=== PATIENT | male | born 1935 | race Caucasian/White ===

== ENCOUNTER 2018-01-16 14:19 | Inpatient (IN) | payer BC, MEDICARE ==
[~2018-01-16] VITALS: Ht 157.5 cm; Wt 78.0 kg
[~2018-01-16 14:19] MED LIST: ACYC-57 PO; ALBU90AE INH; ASPI-496 PO; ASPI-515 PO; BENZ-17 PO; CALC1CAP10 PO; CLON-365 PO; DOXY20TA5 PO; ENOX80SY4 SQ; FINA5TAB4 PO; FLUT16SP NS; MOME13HF2 INH; NITR100C56 PO; OMEP20TA62 PO; OMEP40CA6 PO; OXYC-307 PO; OXYC5CAP2 PO; POLY17PO5 PO; RANI150T4 PO; RIVA10TA PO; RIVA15TA PO; SENN1TAB7 PO; SIMV10TA3 PO; TAMS0.4C2 PO; TRAM50TA2 PO; UNKNOWN MEDS; WARF2.5T73 PO; [UNRECOGNIZED DRUG - CODE] PO; [UNRECOGNIZED DRUG - REMARK]
[2018-01-16 15:26] LABS: BASOPHILS % (AUTO) 0 % (0-1); EOSINOPHILS % (AUTO) 0 % (1-7); LYMPHOCYTES # (AUTO) 0.41 x10^3/uL (1-3.4); LYMPHOCYTES % (AUTO) 6 % (22-44); MD NO; MEAN CORPUSCULAR HEMOGLOBIN 30.4 pg (27.5-34.5); MEAN CORPUSCULAR HGB CONC 33.8 g/dL (33.2-36.2); MEAN CORPUSCULAR VOLUME 89.9 fL (81-97); MEAN PLATELET VOLUME 8.9 fL (7.4-10.4); MONOCYTES # (AUTO) 0.34 x10^3/uL (0.2-0.8); MONOCYTES % (AUTO) 5 % (2-9); NEUTROPHILS # (AUTO) 6.13 x10^3/uL (1.8-6.8); NEUTROPHILS % (AUTO) 89 % (42-75); PLATELET COUNT 138 x10^3/uL (130-400); RED BLOOD COUNT 4.73 x10^6/uL (4.38-5.82)
[2018-01-16 15:35] LABS: ALANINE AMINOTRANSFERASE 21 U/L (12-78); ALBUMIN 2.9 g/dL (3.4-5.0); ANION GAP 6 mmol/L (5-15); CALCIUM 7.5 mg/dL (8.5-10.1); CHLORIDE 110 mmol/L (98-107)
[2018-01-16 15:40] LABS: ALKALINE PHOSPHATASE 65 U/L (45-117); BILIRUBIN,TOTAL 0.7 mg/dL (0.2-1.0); TOTAL PROTEIN 6.3 g/dL (6.4-8.2)
[2018-01-16] MEDS ORDERED: SODIUM CHLORIDE 0.9% 1,000 ML IV ONE (16:00)
[2018-01-16] MEDS ORDERED: SIMV10TA3 PO (16:14)
[2018-01-16] MEDS ORDERED: FURO-92 PO (16:14)
[2018-01-16] MEDS ORDERED: CLON2TAB2 PO (16:14)
[2018-01-16] MEDS ORDERED: DOCU100C33 PO (16:14)
[2018-01-16] MEDS ORDERED: ONDANSETRON 2MG/ML, 2ML IVPush PRN (17:30)
[2018-01-16] MEDS ORDERED: ENOXAPARIN 40 MG/0.4 ML SQ SCH (17:30)
[2018-01-16] MEDS ORDERED: ONDANSETRON ODT 4 MG PO PRN (17:30)
[2018-01-16] MEDS ORDERED: ALBUTEROL SULFATE 2.5 MG/3 ML NPPB PRN (17:30)
[2018-01-16] MEDS ORDERED: LABETALOL 5MG/ML, 20ML IVPush PRN (17:30)
[2018-01-16 17:53] LABS: TROPONIN I < 0.015 ng/mL (0.000-0.045)
[2018-01-16 19:28] VITALS: BP_SYST 112; BP_SYST 119; BP_DIAS 66; BP_DIAS 72; BP_DIAS 73
[2018-01-16 21:49] LABS: CLOSTRIDIUM DIFFICILE ANTIGEN NEGATIVE; CLOSTRIDIUM DIFFICILE TOXIN NEGATIVE (Negative)
[2018-01-16] MEDS: SIMVASTATIN 10 MG TABLET PO SCH (22:40)
[2018-01-16] MEDS: D5%-0.45% NACL 1,000 ML IV SCH (22:45)
[2018-01-17 01:37] VITALS: BP 118/71
[2018-01-17 05:15] LABS: BASOPHILS # (AUTO) 0.01 x10^3/uL (0-0.1); BASOPHILS % (AUTO) 0 % (0-1); EOSINOPHILS # (AUTO) 0.02 x10^3/uL (0-0.4); EOSINOPHILS % (AUTO) 1 % (1-7); LYMPHOCYTES # (AUTO) 0.68 x10^3/uL (1-3.4); LYMPHOCYTES % (AUTO) 13 % (22-44); MD NO; MEAN CORPUSCULAR HEMOGLOBIN 31.2 pg (27.5-34.5); MEAN CORPUSCULAR HGB CONC 34.8 g/dL (33.2-36.2); MEAN CORPUSCULAR VOLUME 89.8 fL (81-97); MEAN PLATELET VOLUME 9.2 fL (7.4-10.4); MONOCYTES # (AUTO) 0.28 x10^3/uL (0.2-0.8); MONOCYTES % (AUTO) 5 % (2-9); NEUTROPHILS # (AUTO) 4.27 x10^3/uL (1.8-6.8); NEUTROPHILS % (AUTO) 81 % (42-75); PLATELET COUNT 130 x10^3/uL (130-400); RED BLOOD COUNT 4.22 x10^6/uL (4.38-5.82); RED CELL DISTRIBUTION WIDTH 14.2 % (9.4-14.8)
[2018-01-17 05:25] LABS: ANION GAP 6 mmol/L (5-15); CALCIUM 7.4 mg/dL (8.5-10.1); CHLORIDE 110 mmol/L (98-107)
[2018-01-17 06:27] VITALS: BP 101/59
[2018-01-17] MEDS: D5%-0.45% NACL 1,000 ML IV SCH ×3 (06:36→23:14)
[2018-01-17] MEDS ORDERED: SODIUM PHOSPHATE 4 MEQ/ML IV SCH (08:00)
[2018-01-17] MEDS ORDERED: POTASSIUM CHLORIDE 20 MEQ TAB.ER.PRT PO ONE ×2 (08:00→13:00)
[2018-01-17] MEDS ORDERED: SODIUM PHOSPHATE 30 MMOL in SODIUM CHLORIDE 0.9% 500 ML IV ONE (08:00)
[2018-01-17 08:22] LABS: CRYPTOSPORIDIUM ANTIGEN Negative (Negative)
[2018-01-17] MEDS: RIVAROXABAN 10 MG TABLET PO SCH (09:05)
[2018-01-17] MEDS: TAMSULOSIN 0.4 MG CAP.ER.24H PO SCH (09:05)
[2018-01-17 13:16] VITALS: BP 108/63
[2018-01-17 19:50] VITALS: BP 124/73
[2018-01-17] MEDS: SIMVASTATIN 10 MG TABLET PO SCH (20:34)
[2018-01-18 00:59] VITALS: BP 102/56
[2018-01-18 05:49] LABS: ALBUMIN 2.4 g/dL (3.4-5.0); ANION GAP 3 mmol/L (5-15); CALCIUM 7.6 mg/dL (8.5-10.1); CHLORIDE 112 mmol/L (98-107); CREATININE 1.14 mg/dL (0.7-1.3)
[2018-01-18 06:24] LABS: BASOPHILS # (AUTO) 0.01 x10^3/uL (0-0.1); BASOPHILS % (AUTO) 0 % (0-1); EOSINOPHILS # (AUTO) 0.19 x10^3/uL (0-0.4); EOSINOPHILS % (AUTO) 4 % (1-7); LYMPHOCYTES # (AUTO) 0.77 x10^3/uL (1-3.4); LYMPHOCYTES % (AUTO) 16 % (22-44); MD SCAN; MEAN CORPUSCULAR HEMOGLOBIN 30.5 pg (27.5-34.5); MEAN CORPUSCULAR HGB CONC 33.7 g/dL (33.2-36.2); MEAN CORPUSCULAR VOLUME 90.5 fL (81-97); MEAN PLATELET VOLUME 9.6 fL (7.4-10.4); MONOCYTES # (AUTO) 0.49 x10^3/uL (0.2-0.8); MONOCYTES % (AUTO) 10 % (2-9); NEUTROPHILS # (AUTO) 3.39 x10^3/uL (1.8-6.8); NEUTROPHILS % (AUTO) 70 % (42-75); PLATELET COUNT 102 x10^3/uL (130-400); RED CELL DISTRIBUTION WIDTH 14.1 % (9.4-14.8)
[2018-01-18 06:45] VITALS: BP 110/62
[2018-01-18] MEDS: D5%-0.45% NACL 1,000 ML IV SCH (08:00)
[2018-01-18] MEDS ORDERED: SODIUM PHOSPHATE 4 MEQ/ML IV SCH (08:30)
[2018-01-18] MEDS ORDERED: SODIUM PHOSPHATE 30 MMOL in SODIUM CHLORIDE 0.9% 500 ML IV ONE (08:30)
[2018-01-18] MEDS: RIVAROXABAN 10 MG TABLET PO SCH (09:25)
[2018-01-18] MEDS: TAMSULOSIN 0.4 MG CAP.ER.24H PO SCH (09:25)
[2018-01-18 12:32] VITALS: BP 116/73
[2018-01-18 13:17] LABS: MICROSCOPIC AUTO
[2018-01-18 13:26] LABS: CULTURE INDICATED? NO
[2018-01-18] MEDS ORDERED: PHENAZOPYRIDINE 100 MG TABLET PO ONE (14:00)
[2018-01-18] MEDS ORDERED: TAMSULOSIN 0.4 MG CAP.ER.24H PO ONE (18:00)
[2018-01-18 20:23] VITALS: BP 129/66
[2018-01-18] MEDS: SIMVASTATIN 10 MG TABLET PO SCH (20:31)
[2018-01-18] MEDS ORDERED: D5%-0.45% NACL 1,000 ML IV SCH (22:30)
[2018-01-19 00:59] VITALS: BP 119/68
[2018-01-19 05:40] LABS: ALBUMIN 2.4 g/dL (3.4-5.0); ANION GAP 5 mmol/L (5-15); CALCIUM 7.7 mg/dL (8.5-10.1); CHLORIDE 111 mmol/L (98-107)
[2018-01-19 05:45] LABS: CREATININE 1.05 mg/dL (0.7-1.3)
[2018-01-19 06:41] VITALS: BP 97/56
[2018-01-19] MEDS: TAMSULOSIN 0.4 MG CAP.ER.24H PO SCH (10:35)
[2018-01-19] MEDS: RIVAROXABAN 10 MG TABLET PO SCH (10:35)
== END 2018-01-19 11:27 | disposition home or self-care (01) | DRG 682 ==
LOC: ED 16:17 → EDIP 17:19 → 4WST 19:02
PROVIDERS: ADMIT Hospitalist; ATTEND Hospitalist
DX: N17.0 Acute kidney failure with tubular necrosis (principal); E43 Unspecified severe protein-calorie malnutrition; I82.401 Acute embolism and thrombosis of unspecified deep veins of right lower extremity; D68.69 Other thrombophilia; E86.0 Dehydration; E83.39 Other disorders of phosphorus metabolism; R62.7 Adult failure to thrive; N18.3 Chronic kidney disease, stage 3 (moderate); F41.9 Anxiety disorder, unspecified; J45.909 Unspecified asthma, uncomplicated; E78.5 Hyperlipidemia, unspecified; R55 Syncope and collapse; Z66 Do not resuscitate; N40.0 Benign prostatic hyperplasia without lower urinary tract symptoms; D32.9 Benign neoplasm of meninges, unspecified; Z86.011 Personal history of benign neoplasm of the brain; Z86.718 Personal history of other venous thrombosis and embolism; Z87.891 Personal history of nicotine dependence; Z79.01 Long term (current) use of anticoagulants
CPT/HCPCS: 36415; 74021; 80048; 80053; 81001; 82040; 82436; 82570; 83735; 84100; 84133; 84300; 84439; 84484; 85025; 87046; 87324; 87328; 87329; 87427; 89055; 93005; 93306; 93970; 99285; J7030; J7040

== ENCOUNTER 2018-11-10 20:58 | Emergency (ER) | payer BC, MEDICARE ==
[~2018-11-10] VITALS: Ht 167.6 cm; Wt 76.0 kg
[~2018-11-10 20:58] MED LIST changes: -CLON-365 PO; +CLON1TAB11 PO; +CLON2TAB9 PO; +DOCU100C33 PO; +FURO-92 PO; -RIVA10TA PO; +RIVA10TA2 PO; -SENN1TAB7 PO; +SENN1TAB8 PO; +WARF2.5T32 PO; -WARF2.5T73 PO
[2018-11-10] MEDS ORDERED: LIDOCAINE-MPF 1%, 5ML INFIL ONE (21:30)
[2018-11-10] MEDS ORDERED: LIDOCAINE-MPF 1%, 5ML ONE (21:35)
[2018-11-11] MEDS ORDERED: BACITRACIN ZINC OINT 500U/GM, 0.9 GM ONE (00:01)
[2018-11-11 00:06] VITALS: BP 121/74
[2018-11-12] MEDS ORDERED: CLON2TAB9 PO (08:56)
[2018-11-12] MEDS ORDERED: HYDR-3237 PO (08:56)
[2018-11-12] MEDS ORDERED: POLY17PO5 PO (08:56)
[2018-11-12] MEDS ORDERED: ACET325T14 PO (08:56)
[2018-11-12] MEDS ORDERED: PSYL0.5215 PO (08:56)
== END 2018-11-11 00:21 | disposition home or self-care (01) ==
LOC: ED 22:04
DX: S01.01XA Laceration without foreign body of scalp, initial encounter (principal); S09.8XXA Other specified injuries of head, initial encounter; J45.909 Unspecified asthma, uncomplicated; N18.3 Chronic kidney disease, stage 3 (moderate); Z86.718 Personal history of other venous thrombosis and embolism; W18.09XA Striking against other object with subsequent fall, initial encounter; Y93.89 Activity, other specified; Y92.009 Unspecified place in unspecified non-institutional (private) residence as the place of occurrence of the external cause; Y99.8 Other external cause status
CPT/HCPCS: 12002; 70450; 72125; 99284